=== PATIENT | male | born 1985 | race Native Hawaiian/Other Pacific Islander ===

== ENCOUNTER 2018-06-12 12:49 | Outpatient (CLI) | payer BC | END 2018-06-12 20:00 | disposition home or self-care (01) | LOC: RAD 12:49 | DX: M25.511 Pain in right shoulder (principal) ==

== ENCOUNTER 2019-06-25 12:41 | Outpatient (CLI) | payer BC | END 2019-06-25 19:18 | disposition home or self-care (01) | LOC: RAD 12:41 | DX: M25.561 Pain in right knee (principal) ==

== ENCOUNTER 2019-11-07 15:58 | Outpatient (CLI) | payer BC | END 2019-11-07 19:32 | disposition home or self-care (01) | LOC: RAD 15:58 | DX: J01.00 Acute maxillary sinusitis, unspecified (principal); J40 Bronchitis, not specified as acute or chronic ==

== ENCOUNTER 2019-11-20 12:56 | Outpatient (CLI) | payer BC | END 2019-11-20 19:19 | disposition home or self-care (01) | LOC: CT 12:56 | DX: J01.00 Acute maxillary sinusitis, unspecified (principal); J40 Bronchitis, not specified as acute or chronic ==

== ENCOUNTER 2019-12-31 10:10 | Outpatient (CLI) | payer BC ==
[2019-12-31 10:37] LABS: PLATELET COUNT 256 K/uL (142-355)
[2019-12-31 10:48] LABS: POTASSIUM 3.9 mmol/L (3.6-5.2)
== END 2019-12-31 20:09 | disposition home or self-care (01) ==
LOC: LABW 10:10 → CT 10:10 → LABW 20:09
PROVIDERS: Internal Medicine
DX: R31.9 Hematuria, unspecified (principal); R30.0 Dysuria
CPT/HCPCS: 36415; 80053; 85027; 87088